=== PATIENT | male | born 1975 | race Two or more races ===

== ENCOUNTER 2019-11-11 08:45 | Emergency (ER) | payer OTHER ==
[~2019-11-11] VITALS: Ht 167.6 cm; Wt 65.8 kg
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
--- NOTE | 2019-11-11 08:52 | NUR ---
LAC 18 NOTED UPON ARRIVAL OF PATIENT
--- NOTE | 2019-11-11 08:55 | NUR ---
DR WEBER AT BEDSIDE
--- NOTE | 2019-11-11 10:25 | NUR ---
IV removed. Catheter intact and site benign. Pressure and 4x4 applied to site. No bleeding noted.Patient discharged to home in stable condition. Written and verbal after care instructions given. Patient verbalizes understanding of instruction.
[2019-11-11 10:27] VITALS: BP 137/88
== END 2019-11-11 10:27 | disposition home or self-care (01) ==
LOC: ER 08:52
DX: S39.81XA Other specified injuries of abdomen, initial encounter (principal); V49.49XA Driver injured in collision with other motor vehicles in traffic accident, initial encounter; Y93.89 Activity, other specified; Y92.488 Other paved roadways as the place of occurrence of the external cause; Y99.8 Other external cause status
CPT/HCPCS: 71045-TC